=== PATIENT | male | born 1995 | race African-American/Black ===

== ENCOUNTER 2020-05-11 16:16 | Emergency (ER) | payer OTHER ==
[~2020-05-11] VITALS: Ht 175.3 cm; Wt 97.6 kg
--- NOTE | 2020-05-11 17:57 | REP ---
INDICATION: palpitations, SOB. COMPARISON: No comparison study. TECHNIQUE: Two views.. FINDINGS: The lungs are well inflated and free of infiltrate. The pleural angles are sharp. The heart size is normal. Pulmonary vasculature is not increased. No significant bony abnormality is seen. IMPRESSION: Negative chest x-ray. <Electronically signed by Tim Pringle > 05/11/20 [id number]
[2020-05-11 18:09] LABS: BASO % 0.6 % (0.0-1.0); EOS # 0.1 10^3/uL (0.0-0.5); EOS % 2.7 % (0.0-3.0); HEMATOCRIT 48.5 % (42.0-52.0); HEMOGLOBIN 16.6 g/dl (13.5-17.5); LYMPH # 1.2 10^3/uL (1.5-5.0); LYMPH % 24.7 % (24.0-44.0); MEAN CORPUSCULAR HEMOGLOBIN 29.1 pg (27.0-33.0); MEAN CORPUSCULAR HGB CONC 34.2 g/dl (32.0-36.5); MEAN CORPUSCULAR VOLUME 85.1 fl (80.0-96.0); MONO # 0.4 10^3/uL (0.0-0.8); MONO % 7.9 % (2.0-8.0); NEUTROPHILS # 3.1 10^3/uL (1.5-8.5); NEUTROPHILS % 63.9 % (36.0-66.0); PLATELET COUNT, AUTOMATED 344 10^3/uL (150-450); WHITE BLOOD COUNT 4.8 10^3/uL (4.0-10.0)
[2020-05-11 18:32] LABS: CK-MB VALUE MASS 1.3 NG/ML (<3.6); CPK CREATINE PHOSPHOKINASE 136 U/L (39-308); MB/CK RELATIVE INDEX 0.96 (< OR =4); TROPONIN I < 0.02 NG/ML (< 0.10)
[2020-05-11 19:07] VITALS: BP 144/82
--- NOTE | 2020-05-11 20:05 | ECGEPIP ---
[facility] - ED Test Date: 2020-05-11 Pat Name: JOSE LUIS NEWTON Department: Room: - Gender: Male [employer]: : 1995 Requested By: ROSE Sanchez Order Number: [id number] Reading MD: Paul Cheung Measurements Intervals [place] Rate: 82 P: 61 NE: 174 QRS: 58 QRSD: 98 T: 11 QT: 350 QTc: 408 Interpretive Statements Normal sinus rhythm POSSIBLE INCOMPLETE RIGHT BUNDLE BRANCH BLOCK NSTTW ABNORMALITY(S) NO PRIORS FOR COMPARISON Electronically Signed on 05-11-2020 20:05:39 EDT by Paul Cheung
== END 2020-05-11 19:37 | disposition home or self-care (01) ==
LOC: M ED 16:16
DX: R00.2 Palpitations (principal); R06.02 Shortness of breath

== ENCOUNTER 2020-07-02 10:25 | Emergency (ER) | payer OTHER ==
[~2020-07-02] VITALS: Ht 175.3 cm; Wt 100.2 kg
[2020-07-02 12:39] LABS: BASO % 0.5 % (0.0-1.0); EOS # 0.1 10^3/uL (0.0-0.5); EOS % 1.9 % (0.0-3.0); HEMOGLOBIN 15.2 g/dl (13.5-17.5); LYMPH # 1.1 10^3/uL (1.5-5.0); LYMPH % 25.2 % (24.0-44.0); MEAN CORPUSCULAR HEMOGLOBIN 28.5 pg (27.0-33.0); MEAN CORPUSCULAR VOLUME 86.3 fl (80.0-96.0); MONO # 0.4 10^3/uL (0.0-0.8); MONO % 8.9 % (2.0-8.0); NEUTROPHILS # 2.6 10^3/uL (1.5-8.5); NEUTROPHILS % 63.3 % (36.0-66.0); PLATELET COUNT, AUTOMATED 306 10^3/uL (150-450); RED BLOOD COUNT 5.33 10^6/uL (4.30-6.10); WHITE BLOOD COUNT 4.2 10^3/uL (4.0-10.0)
[2020-07-02] MEDS ORDERED: NS 1,000 ML IV ONE (12:50)
[2020-07-02] MEDS ORDERED: ONDANSETRON 4MG/2ML VIAL IV ONE (12:50)
[2020-07-02 13:00] LABS: ALBUMIN 4.1 GM/DL (3.2-5.2); BILIRUBIN,DIRECT 0.2 MG/DL (0.0-0.2); BILIRUBIN,TOTAL 0.6 MG/DL (0.2-1.0); TOTAL PROTEIN 7.4 GM/DL (6.4-8.2)
[2020-07-02 14:53] LABS: APPEARANCE, URINE CLEAR (CLEAR); BACTERIA, URINE AUTO NEGATIVE (NEGATIVE); BILIRUBIN, URINE AUTO NEGATIVE (NEGATIVE); BLOOD, URINE BLOOD NEGATIVE (NEGATIVE); COLOR, URINE STRAW (YELLOW); GLUCOSE, URINE (UA) AUTO NEGATIVE (NEGATIVE); KETONE, URINE AUTO NEGATIVE (NEGATIVE); LEUKOCYTE ESTERASE, URINE AUTO NEGATIVE (NEGATIVE); NITRITE, URINE AUTO NEGATIVE (NEGATIVE); PROTEIN, URINE AUTO NEGATIVE (NEGATIVE); RBC, URINE AUTO 1 /HPF (0-3); SPECIFIC GRAVITY URINE AUTO 1.012 (1.002-1.035); SQUAMOUS EPITHELIAL CELL UR AU 0 /HPF (0-6); UROBILINOGEN, URINE AUTO 0.2 mg/dL (0.0-2.0); WBC, URINE AUTO 4 /HPF (0-3)
[2020-07-02 15:24] VITALS: BP 130/71
== END 2020-07-02 15:27 | disposition home or self-care (01) ==
LOC: M ED 10:25
DX: R19.7 Diarrhea, unspecified (principal); R11.0 Nausea
CPT/HCPCS: 80047; 80076; 81001; 83690; 85025; 96361; 96374; 99284; J2405